=== PATIENT | female | born 1940 | race Caucasian/White ===

== ENCOUNTER 2016-10-27 02:26 | Inpatient (IN) | payer OTHER, MEDICARE ==
[~2016-10-27] VITALS: Ht 170.2 cm; Wt 89.4 kg
[~2016-10-27 02:26] MED LIST: ACETAMINOPHEN-H1 TA2 PO; ALIGN4 MG PO; AMBIEN CR12.5 MG PO; CITRUCEL500 MG PO; COMPAZINE10 M1 PO; COUMADIN 5 MG TA5 MG PO; GABAPENTIN300 M2 PO; HYDRODIURIL 2525 MG PO; HYOSCYAMINE0.375 M1 PO; IBUPROFEN800 M1 PO; LEVSIN0.125 M1 PO; LIPITOR 10MG10 MG PO; METOPROLOL SUCC50 M1 PO; NEURONTIN300 MG PO; NORCO 325 MG-51 TAB PO; TOPROL XL25 M1 PO; VICODIN 5-3001 EACH PO
--- NOTE | 2016-10-27 09:48 | Operative Report ---
Operative/Inv Procedure Report Surgery Date: 10/27/16 Name of Procedure: Right total hip arthroplasty Pre-Operative Diagnosis: Primary osteoarthritis right hip Post-Operative Diagnosis: Same Estimated Blood Loss: 250 CC Surgeon/Kindergartner: KATHIE MODI,CHRISTOPHE Rabago Physician tax accounting assistant Geoff Black Anesthesia: block (SPINAL) IV Fluids: See anesthesia record Implants: [place] secure fit femoral stem size 8, 56 acetabular shell, -2.5 neck length 36 mm head Drains: None Specimens: Right femoral head to pathology Complications: Non- Condition: Stable Operative Indication: Patient is a 76-year-old female with primary osteoarthritis of the right hip. She has failed conservative treatment and wishes to proceed with an elective right total hip arthroplasty. Risks and benefits of the procedure were discussed with the patient detail. A skilled set of hands was necessary and provided by physician tax accounting assistant Geoff Black weighted with retraction positioning and component assembly throughout the case. Operative/Procedure Note Note: Once informed consent was obtained and the correct limb was identified the patient brought to operating room and placed on the table in supine position. After administration of spinal anesthesia patient was placed in a left lateral Decubitus position on the pegboard with an axillary roll in place and all bony prominences well-padded. The right lower chamois was prepped and draped in usual sterile fashion. To begin the procedure standard incision was made for superior approach to the hip. Sharp dissection was carried down to the skin and subcutaneous tissue from the tip of the greater trochanter and carried out posteriorly along the gluteus will. The gluteus will fascia was identified and incised sharply with a #10 blade. The fibers of the gluteus will were split in line at the bipennate junction. Retractor was then placed on the gluteus medius muscle belly the piriformis tendon was identified and released from its insertion. This was tagged for later repair. The capsule of the hip was identified and the retractor was then placed deep to the gluteus and minimus also belly. Capsulotomy was performed intact for repair. Hip was dislocated. Anterior capsule was sharply removed and a femoral neck cut was made 1 fingerbreadth above the lesser trochanter. The femoral head with was removed and passed off as specimen. Anterior and inferior acetabular retractors were placed and reaming was begun with a size 47 reamer. Reaming was continued up to a size 55 reamer. A trial 56 cup was placed into the acetabulum and found to be a good fit. A 56 acetabular shell with a cluster holes for screws was opened and placed into the acetabulum using press-fit technique. One screw was placed for secure and fixation purposes. The liner was opened and placed in the cup without complication. Attention was then turned to the femoral side of the procedure. The leg was placed in internal rotation and a femoral neck elevator was placed and a retractor was placed around the femoral neck. A cut was made to freshen up the femoral neck cut and remove lateral femoral neck with the box osteotome. Initial reaming reamer was started and we reamed up to a size 8 reamer for the secure fit system. We then broached up to the size 8 broach without complication. The size 8 broach was left in place and a trial reduction was done with a 36 mm head and 0 neck length. Hip was reduced and found to be stable with 90 of flexion and 30 of internal rotation and 20 of adduction. Hip was redislocated and the components removed. Femoral canal was pulse lavaged and a size 8 [place] secure fit femoral stem was opened and placed on the femoral canal using press-fit technique. Trial reduction was again done with the 0 neck length and I felt that the leg lengths were slightly off and we went to a -2.5 neck length. This was reduced and taken through a range of motion and found to be stable and leg lengths are equal. A 36 mm -2.5 neck length head was opened and placed onto the femoral stem without, patient. The hip was reduced and again taken through range of motion. The wound was pulse lavaged. The capsule and piriformis were returned repaired back to the greater trochanter and soft tissue. The gluteus will fascia was closed with a looped #1 PDS suture. The deep subcutaneous tissue closed with #1 Vicryl interrupted sutures the subcutaneous tissues were closed with 2-0 Vicryl interrupted sutures and the skin was closed leta. Sterile dressings applied and the patient was awakened taken recovery in stable condition.
--- NOTE | 2016-10-27 10:13 | RADIOLOGY REPORT ---
EXAMINATION: XR HIP, RIGHT CLINICAL INFORMATION: Replacement COMPARISON: None TECHNIQUE: Single of the right hip. FINDINGS: Single view shows 2 part prosthesis. Good visual result. No acute fracture. IMPRESSION: 2 part listhesis on right. Single view. Good visual result
[2016-10-27 12:31] VITALS: BP 100/70
--- NOTE | 2016-10-27 12:52 | NUR ---
PT ARRIVED FROM PACU AT 1200 VIA HOSPITAL BED. PT A/V/OX3. ON RA. SAT 97%. LCTA. NO DISTRESS NOTED. PT DENIES ANY PAIN. R HIP DRESSING CDI. +PULSES, PT C/O TINGLING TO R FOOT, SAYS IT IS BASELINE FOR HER. PT HAS HX OF TREMORS TO CHIN, TONGUE, AND HANDS THAT IS INTERMITTENT AND COMES AND GOES. SKIN CLEAN DRY & INTACT. RCW PACER, HX BRADYCARDIA. ORAL TEMP 92.9, RECTAL 94.4. PT COVERED WITH MULTIPLE BLANKETS AND WARM PACKS, SURGICAL PA CAR ZAINAB. NO HX OF FALLS, FALL PRECAUTIONS IN PLACE. ABDUCTOR PILLOW IN PLACE. D5LR @75ML/HR INFUSING INTO #20 IN LFA. PT ORIENTED TO ROOM CALL PEREZ & SURROUNDINGS. PRECAUTIONS MAINTAINED.
--- NOTE | 2016-10-27 13:50 | PN- Orthopedic ---
Subjective Subjective: POC S/P RIGHT KASSIDY NO MAJOR COMPLAINTS AT THIS TIME DENIES CP, SOB, NO N+V WITH DIET SITTING UP IN CHAIR WITH ABDUCTOR PILLOW IN PLACE Objective Vital Signs and I&Os Vital Signs Date Time Temp Pulse Resp B/P B/P Pulse O2 O2 Flow FiO2 Mean Ox Delivery Rate 10/27 1231 94.4 60 18 100/70 97 Room Air Intake & Output 10/27 0000 10/26 0000 Intake Total Output Total Balance Patient 197 lb Weight Physical Exam: CV: RRR LUNGS: CLEAR ABD: SOFT, +BS EXT: THIGH SOFT DISTAL CMS INTACT ABDUCTOR PILLOW IN PLACE FOSTER: WITH CLEAR URINE Assessment/Plan Assessment/Plan ORTHO STABLE PLAN TITRATE PAIN MEDS ELIQUIS 2.5MG PO BID MAY BE OOB THIS EVENING WITH ASSISTANCE OOB WITH PT IN AM PLAN FOR D/C TO [facility] ON TUESDAY Core Measures/Miscellaneous Venous Thromboembolism VTE Risk Factors: Age > 40, Surgery VTE Contraindications: No Contraindications VTE Diagnosis: No Beta Keegan Is Beta Keegan a Home Med? No Antibiotics Is Patient on Antibiotics? No
[2016-10-27 14:41] VITALS: BP 110/60
--- NOTE | 2016-10-27 15:39 | NUR ---
AT 1415- THIS RN TOOK A BOTTLE OF 4 PILLS OF AMBIEN FROM PT AND BROUGHT DOWN TO PHARMACY IN VALUABLES BAG.
[2016-10-27 15:56] VITALS: BP 136/80
[2016-10-27 18:02] VITALS: BP 134/82
[2016-10-27 22:00] VITALS: BP 130/78
--- NOTE | 2016-10-27 22:33 | NUR ---
PATIENT'S DAUGHTER CALLED THIS RN FOR UPDATE ON PATIENT. INFORMATION PROVIDED REQUESTED. DAUGHTER ALSO REQUESTED THAT WE CHECK PATIENT'S VITAMIN B12 VALUE SHE HAS NOT HAD IT CHECKED SINCE ADMISSION ON HOSPITAL AND IS DUE FOR HER NEXT B12 INJECTION ON 10/28/16. MD ANDERSEN NOTIFIED.
[2016-10-28 01:53] VITALS: BP 124/80
[2016-10-28 06:00] VITALS: BP 105/80
--- NOTE | 2016-10-28 07:40 | PN- Orthopedic ---
Surgical Brief Attending Note Brief Attending Note: Patient seen this morning postop day #1 status post right total hip arthroplasty. She is doing well. She has minimal complaints. Her pain is well tolerated and controlled. She reports that she was a up and walking yesterday postoperatively. On physical exam the patient's awake and alert. She is resting comfortably. The right lower extremity dressing is intact. The right lower extremity is grossly neurovascular intact. She is moving all of her toes. There is no calf tenderness or swelling bilaterally. Assessment status post right total hip arthroplasty. Plan: Follow-up with morning labs. Continue anticoagulation. Continue physical therapy weightbearing as tolerated.
[2016-10-28 08:25] LABS: ABSOLUTE BASOPHIL COUNT 0 /CUMM (0.0-0.2); ABSOLUTE EOSINOPHIL COUNT 0.2 /CUMM (0.0-0.7); ABSOLUTE GRANULOCYTE CT 7.9 /CUMM (1.4-6.5); ABSOLUTE LYMPH COUNT 1.6 /CUMM (1.2-3.4); ABSOLUTE MONOCYTE COUNT 0.8 /CUMM (0.10-0.60); BASOPHIL % 0.4 % (0.0-2.0); EOSINOPHIL % 1.7 % (0-5); GRANULOCYTE % 74.7 % (42.2-75.2); HEMATOCRIT 32.7 % (37-47); MEAN CORPUSCULAR HGB 30.9 PG (27.0-31.0); MEAN CORPUSCULAR HGB CONC 33.5 G/DL (33.0-37.0); MEAN CORPUSCULAR VOLUME 92.4 FL (81.0-99.0); MEAN PLATELET VOLUME 9.3 FL (7.4-10.4); PLATELET COUNT 150 /CUMM (130-400); RBC DISTRIBUTION WIDTH 14.9 % (11.5-14.5); RED BLOOD CELL CT 3.54 /CUMM (4.20-5.40); WHITE BLOOD CELL COUNT 10.5 /CUMM (4.8-10.8)
[2016-10-28 09:57] VITALS: BP 110/76
[2016-10-28 14:49] VITALS: BP 118/60
--- NOTE | 2016-10-28 22:30 | NUR ---
ADMINISTERED PTS AMBIEN 12.5 MG PO AT BEDTIME. LOCKED IN MED CABINET. TWO PILLS REMAINING. COUNTED WITH XENIA IY.
[2016-10-28 22:33] VITALS: BP 104/70
[2016-10-29 06:55] VITALS: BP 110/70
--- NOTE | 2016-10-29 07:54 | PN- Orthopedic ---
See Addendum Subjective Subjective: POD#2 S/P RIGHT KASSIDY NO MAJOR ISSUES OVERNIGHT DENEIS CP, SOB, NO N+V WITH DIET NO BM Objective Vital Signs and I&Os Vital Signs Date Time Temp Pulse Resp B/P B/P Pulse O2 O2 Flow FiO2 Mean Ox Delivery Rate / 0655 101.9 100 20 110/70 93 Room Air / 2233 98.6 80 20 104/70 91 Room Air / 1449 97.7 77 20 118/60 94 /06 1003 Room Air / 0957 99.1 82 16 110/76 92 Room Air / 0951 82 110/76 Intake & Output / 0800 / 0000 / 1600 10/28 0800 / 0000 / 1600 Intake Total 692 091 4636 960 705 Output Total 400 582 919 1918 550 650 Balance -400 500 350 -150 410 55 Intake, IV 600 600 225 Intake, Oral 800 600 600 360 480 Output, Urine 400 454 143 4788 550 650 Patient 197 lb Weight Physical Exam: CV: RRR LUNGS: CLEAR ABD: SOFT, +BS EXT: DRSG CHANGED, WOUND C/D/I NO CALF TENDERNESS BILAT DISTAL CMS INTACT Assessment/Plan Assessment/Plan ORTHO STABLE PLAN CONT OOB WITH PT/STAIRS ELIQUIS BID FOR DVT PROPHYLAXIS TITRATE PAIN MEDS BOWEL REGIME PLAN FOR SNF D/C TOMORROW Core Measures/Miscellaneous Venous Thromboembolism VTE Risk Factors: Age > 40, Surgery VTE Contraindications: No Contraindications VTE Diagnosis: No Beta Keegan Is Beta Keegan a Home Med? No Antibiotics Is Patient on Antibiotics? No
[2016-10-29 15:19] VITALS: BP 118/70
--- NOTE | 2016-10-29 18:38 | NUR ---
PT COMPLAINING OF BURNING SENSATION WHILE URINATING. ALSO VOIDING FREQUENTLY. URINE IS CLEAR AND YELLOW IN COLOR BUT DOES HAVE MILDLY FOUL ODOR. REPORTED TO CHERYL SOTOMAYOR. URINE SAMPLE OBTAINED AND SENT. BLADDER SCAN PRE-VOID DONE, 476ML. POST VOID SCAN READING 275ML. WILL MONITOR.
[2016-10-29 22:51] VITALS: BP 118/70
[2016-10-30 06:54] VITALS: BP 110/76
--- NOTE | 2016-10-30 08:52 | PN- Orthopedic ---
Subjective Subjective: patient states doing well minimal pain ambulating well has remained afebrile dressing clean intact. Objective Vital Signs and I&Os Vital Signs Date Time Temp Pulse Resp B/P B/P Pulse O2 O2 Flow FiO2 Mean Ox Delivery Rate 10/30 0654 98.7 95 20 110/76 94 Room Air 10/29 2251 100.1 97 20 118/70 94 Room Air 10/29 1519 99.8 97 20 118/70 93 10/29 1029 98.6 92 16 94/50 10/29 0915 100.1 Intake & Output 10/30 1600 10/30 0800 10/30 0000 10/29 1600 10/29 0800 10/29 0000 Intake Total 200 1200 0 800 Output Total 1050 800 400 300 Balance -850 400 -400 500 Intake, Oral 200 1200 0 800 Number 0 Bowel Movements Output, Urine 1050 800 400 300 Physical Exam: patient post day #3 s/p right total hip doing well ambulating around the floor good lower leg mobility. dressing clean dry. neuro intact. Assessment/Plan Assessment/Plan doing well s/p right total hip raedy for dc to snf when PT clears patient.DVT prophylaxis sutures out at 2 weeks. Core Measures/Miscellaneous Venous Thromboembolism VTE Risk Factors: Age > 40, Surgery VTE Contraindications: No Contraindications VTE Diagnosis: No Beta Keegan Is Beta Keegan a Home Med? No Antibiotics Is Patient on Antibiotics? No Attending MD Review Statement Attending Statement Attending MD Statement: examined this patient
[2016-10-30] MEDS ORDERED: ELIQUIS2.5 M1 PO (11:26)
[2016-10-30] MEDS ORDERED: HYDROCODON-ACE1 EAC2 PO (11:26)
[2016-10-30] MEDS ORDERED: MIRALAX119 GM PO (11:26)
[2016-10-30] MEDS ORDERED: DOCUSATE SODIU100 M3 PO (11:26)
--- NOTE | 2016-10-30 11:29 | Patient Discharge Instructions ---
Discharge Instructions General Discharge Information You were seen/treated for: r hip pain You had these procedures: right total hip replacement Watch for these problems: fever>101, worsening pain, redness/drainage from wound Other wound care: you may shower. do not soak the wound- no tub baths or swimming. watch for signs of infection Diet Continue normal diet: Yes Recommended Diet: Regular Activity Activity Limited to: Weight bear as tolerated Other activity limits: use assitive devices as needed Acute Coronary Syndrome Inclusion Criteria At DC or during hospital stay patient has or had the following: ACS DIAGNOSIS No Discharge Core Measures Meds if any: Prescribed or Continued at Discharge Meds if any: NOT Prescribed or Continued at Discharge Congestive Heart Failure Inclusion Criteria At DC or during hospital stay patient has or had the following: CHF DIAGNOSIS No Discharge Core Measures Meds if any: Prescribed or Continued at Discharge Meds if any: NOT Prescribed or Continued at Discharge Cerebrovascular accident Inclusion Criteria At DC or during hospital stay patient has or had the following: CVA/TIA Diagnosis No Discharge Core Measures Meds if any: Prescribed or Continued at Discharge Meds if any: NOT Prescribed or Continued at Discharge Venous thromboembolism Inclusion Criteria VTE Diagnosis No VTE Type NONE VTE Confirmed by (Test) NONE Discharge Core Measures - Per Current guidelines, there needs to be overlap - treatment for the first 5 days of Warfarin therapy. - If discharged on Warfarin prior to 5 days of - overlap therapy, the patient will need to be - assessed for post discharge needs including - *Post discharge parental anticoagulation - *Warfarin and/or parental anticoagulation education - *Follow up date to check INR post discharge At least 5 days overlap therapy as Inpatient No Meds if any: Prescribed or Continued at Discharge Note: Overlap Therapy is Warfarin and Anticoagulant Meds if any: NOT Prescribed or Continued at Discharge
--- NOTE | 2016-10-30 11:35 | Surgical Discharge Summary ---
Visit Information Visit Dates Admission Date: 10/27/16 Discharge Date: 10/30/16 History of Present Illness Chief Complaint: R hip pain Medical History Blood Transfusion Hx: No Neurological: BENIEGN ESSENTIAL TREMOR EENT: NONE Cardiovascular: hypertension, hyperlipidemia, RCW PACERMAKER BRADYCARDIA Respiratory: NONE Gastrointestinal: irritable bowel syndrome Hepatic: NONE Renal: NONE Musculoskeletal: osteoarthritis Psychiatric: NONE Endocrine: NONE Blood Disorders: NONE Cancer(s): SKIN CANCER-NOSE ANALYSIS REPORTING DEVELOPER/Reproductive: NONE History of MRSA: No History of VRE: No History of CDIFF: No Isolation History: Standard Pneumonia Vaccine: 01/26/15 Influenza Vaccine: 01/23/15 Surgical History Pertinent Surgical History: appendectomy, hernia repair L HIP REPLACEMENT CHOLEYCYSTECTOMY Psychosocial History Where Do You Live? Home Who Do You Live With? Patient/Self Services at Home: None What is Your Primary Language? Serbian Review of Systems: see H&P Hospital Course Course Attending Physician: CHRISTOPHE REINOSO MD Primary Care Physician: NOLBERTO FOX MD Hospital Course: Admitted 10/27/16 for elective Right total hip replacement performed by Dr. Reinoso on 10/27/16. Postoperatively, worked with PT. At time of dc, tolerating diet, pain is well controlled, and VS are stable. Allergies: Coded Allergies: acetaminophen (From PERCOCET) (UPSET STOMACH 10/25/16) oxycodone (From PERCOCET) (UPSET STOMACH 10/25/16) Disposition Summary Disposition Principal Diagnosis: Primary osteoarthritis right hip Additional Diagnosis: s/p Right total hip arthroplasty Discharge Disposition: SNF Discharge Instructions General Discharge Information Code Status: Full Code Patient's Diet: regular Patient's Activity: WBAT Follow-Up Instructions/Appts: Call to be seen in 2 weeks. Medications at Discharge Discharge Medications: Continue taking these medications: Atorvastatin (Atorvastatin Calcium) 10 MG TAB 10 Milligram ORAL DAILY Comments: Last Taken: 02/28/15 Time: 6:30PM Gabapentin (Gabapentin) 300 MG CAPSULE 1 Capsule ORAL THREE TIMES DAILY Zolpidem Tartrate (Ambien Cr) 12.[address] 1 Tablet ORAL Every night Comments: NOT GIVEN IN HOSPITAL Bifidobacterium Infantis (Align) (Unknown Strength) CAP 1 Capsule ORAL DAILY Comments: NOT GIVEN IN HOSPITAL Metoprolol Succ XL (Toprol XL) 25 MG TAB 1 Tablet ORAL DAILY Hyoscyamine (Levsin) 0.125 MG TABLET 1 Tablet ORAL THREE TIMES DAILY as needed for IBS / DIARRHEA Prochlorperazine Maleate (Compazine) 10 MG TABLET 1 Tablet ORAL 4X PER DAY as needed for NAUSEA Start taking the following new medications: Apixaban (Eliquis) 2.5 MG TABLET 2.5 Milligram ORAL TWICE DAILY Days = 30 No Refills Hydrocodone/Acetaminophen (Hydrocodon-Acetaminophen 5-325) 5 MG-325 MG TABLET 1 Tablet ORAL EVERY 4 HOURS NEEDED as needed for pain Days = 3 No Refills Docusate Sodium (Docusate Sodium) 100 MG CAPSULE 100 Milligram ORAL TWICE DAILY Days = 30 No Refills Polyethylene Glycol 3350 (Miralax) 17 GRAM/DOSE POWDER 17 Gram ORAL DAILY NEEDED as needed for NO BM IN TWO DAYS Days = 30 No Refills
[2016-10-30 13:29] VITALS: BP 140/80
[2016-10-30 14:15] VITALS: BP 122/70
== END 2016-10-30 15:07 | DRG 470 ==
LOC: 2NA 02:26 → SDA 02:26 → ENRESERV 10:41 → ENTRNSPT 11:27 → EDTRNSPTSTS 11:41 → EDTRNSPT 11:41 → CMPTRNSPT 11:49 → 2NA 11:52 → ENPENDDIS 10-30 13:08 → 2NA 10-30 15:07
PROVIDERS: Physician Assistant Surgical; ADMIT Orthopaedic Surgery Foot and Ankle Surgery
PROC: 0SR904A Replacement of Right Hip Joint with Ceramic on Polyethylene Synthetic Substitute, Uncemented, Open Approach (ICD-10-PCS; principal; 2016-10-27)
DX: M16.11 Unilateral primary osteoarthritis, right hip (principal); I44.1 Atrioventricular block, second degree; Z96.642 Presence of left artificial hip joint; I10 Essential (primary) hypertension; E78.5 Hyperlipidemia, unspecified; G25.0 Essential tremor; Z95.0 Presence of cardiac pacemaker; K58.9 Irritable bowel syndrome, unspecified
CPT/HCPCS: 2NAP; 73501; 81001; 82436; 87086; 88304; 97110-GO; 97116-GO; 97161-GP; 97530-GO; J0131; J2405; J2550; J3370; J7040